=== PATIENT | female | born 1955 ===

== ENCOUNTER 2017-06-25 09:45 | Emergency (ER) | payer MEDICAID, OTHER ==
[2017-06-25 09:45] VITALS: BMI 26.6
[2017-06-25 10:07] VITALS: RESP 18; TEMP 98
[2017-06-25 10:41] LABS: BASO % 0.3 % (0.0-2.0); EOS # 0.1 K/uL (0.0-0.7); EOS % 1.3 % (0.0-4.0); LYMPH # 2.9 K/uL (1.0-4.3); LYMPH % 32.5 % (20.0-40.0); MEAN CELL VOLUME 88.3 fL (81.0-99.0); MEAN CORPUSCULAR HEMOGLOBIN 30.7 pg (27.0-31.0); MEAN CORPUSCULAR HGB CONC 34.8 g/dL (33.0-37.0); MEAN PLATELET VOLUME 7.9 fL (7.2-11.7); MONO # 0.5 K/uL (0.0-0.8); MONO % 6.1 % (0.0-10.0); NEUT # 5.3 K/uL (1.8-7.0); NEUT % 59.8 % (50.0-75.0); NRBC % 0.1 % (0.0-2.0); RBC 4.56 Mil/uL (3.80-5.20); RED CELL DISTRIBUTION WIDTH 13.1 % (11.5-14.5); WHITE BLOOD COUNT 8.9 K/uL (4.8-10.8)
[2017-06-25 11:02] LABS: ALBUMIN 4.4 g/dL (3.5-5.0); ALT/SGPT 11 U/L (9-52); AST/SGOT 23 U/L (14-36); BLOOD UREA NITROGEN 14 mg/dL (7-17); CALCIUM 9.3 mg/dl (8.6-10.4); GFR AFRICAN-AMERICAN > 60; GFR NON-AFRICAN AMERICAN > 60
[2017-06-25 11:59] VITALS: BP 136/76; PULSE 89; O2SAT 98
--- NOTE | 2017-06-25 13:41 | C.PDOC ---
History Of Present Illness 62 y/o female presents to ED sent from clinic for HTN and with complaints of mild headache. Patient is a known hypertensive and states she did not take her medication this morning. Patient denies chest pain, sob, fever, cough or any other complaints at this time. Chief Complaint (Nursing): High Blood Pressure History Per: Patient History/Exam Limitations: no limitations Onset/Duration Of Symptoms: Hrs Current Symptoms Are (Timing): Still Present Associated Symptoms: Headache Past Medical History Reviewed: Historical Data, Nursing Documentation, Vital Signs Vital Signs: Last Vital Signs Temp 98 F 06/25/17 11:58 Pulse 89 06/25/17 11:58 Resp 18 06/25/17 11:58 BP 136/76 06/25/17 11:58 Pulse Ox 98 06/25/17 13:42 - Medical History PMH: Diabetes, HTN, Hypercholesterolemia Surgical History: No Surg Hx Family History: States: No Known Family Hx - Social History Hx Tobacco Use: Yes Hx Alcohol Use: No Hx Substance Use: No - Immunization History Hx Tetanus Toxoid Vaccination: No Hx Influenza Vaccination: No Hx Pneumococcal Vaccination: No Review Of Systems Constitutional: Negative for: Fever, Chills Cardiovascular: Negative for: Chest Pain Respiratory: Negative for: Shortness of Breath Neurological: Positive for: Headache. Negative for: Weakness, Numbness Physical Exam - Physical Exam Appears: Non-toxic, No Acute Distress Skin: Warm, Dry, No Rash Head: Atraumatic, Normacephalic Eye(s): bilateral: Normal Inspection Oral Mucosa: Moist Neck: Normal ROM, Supple Cardiovascular: Rhythm Regular Respiratory: Normal Breath Sounds, No Rales, No Rhonchi, No Wheezing Gastrointestinal/Abdominal: Soft, No Tenderness, No Guarding, No Rebound Extremity: Normal ROM, Capillary Refill (<2 seconds) Neurological/Psych: Oriented x3, Normal Speech, Normal Cognition ED Course And Treatment - Laboratory Results Result Diagrams: 06/25/17 10:34 06/25/17 10:34 O2 Sat by Pulse Oximetry: 98 (RA) Pulse Ox Interpretation: Normal Progress Note: Patient given blood pressure medication at ED, Blood pressure significantly lower. Patient reports no headache and discharged with prescriptions, instructed f.u with PMD. Disposition - Disposition Referrals: [facility] [Outside] [facility] [Outside] Disposition: HOME/ ROUTINE Disposition Time: 11:00 Condition: IMPROVED Additional Instructions: Thank you for letting us take care of you today. The emergency medical care you received today was directed at your acute symptoms. If you were prescribed any medication, please fill it and take as directed. It may take several days for your symptoms to resolve. Return to the Emergency Department if your symptoms worsen, do not improve, or if you have any other problems. Please contact your doctor or call one of the physicians/clinics you have been referred to that are listed on the Patient Visit Information form that is included in your discharge packet. Bring any paperwork you were given at discharge with you along with any medications you are taking to your follow up visit. Our treatment cannot replace ongoing medical care by a primary care provider (PCP) outside of the emergency department. [facility] of your care today. Take all your medication as prescribed everyday. Follow up with the clinic in 2-3 days for re-evaluation and further management. Serg por dejarnos atenderlo hoy. La atencin mdica de emergencia que recibi hoy estaba dirigida a zenobia sntomas agudos. Si le prescribieron algn medicamento, llnelo y tome segn las indicaciones. Zenobia sntomas pueden tardar varios rose en resolverse. Regrese al Departamento de Emergencia si zenobia s ntomas empeoran, no mejoran o si tiene algn otro problema. Comunquese con carver mdico o llame a chad de los mdicos / clnicas a los que peterson sido referido que figura en el formulario de Informacin de visita del paciente que se incluye en carver paquete de kerry. Traiga todos los documentos que recibi al momento del kerry junto con los medicamentos que est tomando en carver visita de seguimiento. Nuestro tratamiento no puede reemplazar la atencin mdica en curso por parte de un proveedor de atencin primaria (PCP) fuera del departamento de emergencias. Serg por permitir que el equipo de [facility] sea parte de carver cuidado hoy. [place] todos zenobia medicamentos segn lo prescrito todos los rose. Jaquan un seguimiento con la clnica en 2-3 rose para mary alice nueva evaluacin y ms administracin. Prescriptions: Lisinopril [Prinivil] 10 mg PO DAILY #14 tablet Instructions: High Blood Pressure in Adults Forms: Comviva (Urdu), Comviva (Bahraini) Print Language: TURKMEN - Clinical Impression Clinical Impression: Hypertension - Scribe Statement The provider has reviewed the documentation as recorded by the Scriblizzie Pathak All medical record entries made by the Scribe were at my direction and personally dictated by me. I have reviewed the chart and agree that the record accurately reflects my personal performance of the history, physical exam, medical decision making, and the department course for this patient. I have also personally directed, reviewed, and agree with the discharge instructions and disposition.
== END 2017-06-25 11:59 | disposition home or self-care (01) ==
LOC: C.ER 09:45
DX: I10 Essential (primary) hypertension (principal); E11.9 Type 2 diabetes mellitus without complications; E78.00 Pure hypercholesterolemia, unspecified; F17.210 Nicotine dependence, cigarettes, uncomplicated